=== PATIENT | male | born 1980 | race Caucasian/White ===

== ENCOUNTER → 2020-12-09 11:06 | Outpatient (CLI) | payer OTHER, SELFPAY ==
--- NOTE | 2020-12-09 | DI.MRI.S_ITS ---
PROCEDURE: MR HEAD/BRAIN WO/W CON INDICATIONS: Hemiplegic migraine, intractable, with status migrainosus TECHNIQUE: Noncontrast axial T1 spin echo, axial T2 fast spin echo, sagittal and axial FLAIR, coronal T2 fast spin echo, axial gradient echo, axial diffusion and ADC through the brain. After the administration of contrast, axial and coronal 3D VIBE or T1 spin echo with fat saturation through the brain. COMPARISON: [facility], CT, HEAD AND NECK ANGIO, 05/31/2016, 15:08. [facility], CT, HEAD WITHOUT CONTRAST, 05/31/2016, 12:55. [facility], MR, STROKE PROTOCOL, 05/28/2016, 15:57. [facility], CT, HEAD WITHOUT CONTRAST, 05/28/2016, 15:31. FINDINGS: Image quality: Excellent. CSF Spaces: Basal cisterns are patent. No extra-axial fluid collections. Ventricles are normal in size and shape. Brain: No midline shift. No intracranial bleeds or masses. No abnormal intracranial enhancement. A few small foci of T2 weighted hyperintensity can be seen within the periventricular deep white matter. A few juxtacortical lesions can also be seen. There is involvement of the corpus callosum. The brainstem appears normal. Diffusion-weighted images demonstrate no acute ischemic insults. No chronic ischemic insults. Normal intravascular flow voids are present. Skull and face: Calvarial marrow is normal in signal. Orbits appear normal. Sinuses: Sinuses and mastoids appear clear. IMPRESSION: Small foci of nonenhancing T2 weighted hyperintensity can be seen within the periventricular deep white matter. Differential diagnosis in a patient of this age in with this given history includes sequelae of migraine headaches as well as a demyelinating process, including multiple sclerosis. These foci appear progressed compared to 2016. Dictated by: Ld Pizarro M.D. on 12/09/2020 at 13:10 Approved by: Ld Pizarro M.D. on 12/09/2020 at 13:16
== END ==
PROVIDERS: PCP Physician Assistant Medical; Referring Provider Physician Assistant Medical; Visit Provider Physician Assistant Medical
DX: G43.411 Hemiplegic migraine, intractable, with status migrainosus (principal)
CPT/HCPCS: 70553

== ENCOUNTER → 2021-10-19 15:35 | Outpatient (CLI) | payer OTHER, SELFPAY ==
--- NOTE | 2021-10-19 | DI.MRI.S_ITS ---
PROCEDURE: MR LUMBAR SPINE WO CON INDICATIONS: Radiculopathy, lumbar region TECHNIQUE: Noncontrast sagittal T1 spin echo and T2 fast echo, sagittal STIR, and T2 fast spin echo through the lumbar spine. In cases with scoliosis, additional coronal T2 fast spin echo may be performed. COMPARISON: None. FINDINGS: Image quality: Excellent. Alignment and Curvature: There is normal bony alignment. Bone Marrow: Marrow is of normal overall signal. No acute vertebral body compression fractures. Spinal Cord: Conus medullaris terminates at the L1 level. Visualized cord demonstrates normal signal and size. Paraspinous Soft Tissues: No paravertebral masses. This patient has transitional lumbar anatomy. For the purposes of this examination, the level with the last well-developed disc space is considered to be L5-S1. By this numbering scheme, there are tiny vestigial ribs at T12. The L5 level is transitional and is highly sacralized. T12-L1: Normal appearance. L1-L2: Normal appearance. L2-L3: Normal appearance. L3-L4: The disc height and disk signal are well-preserved. Mild generalized disc bulge is seen. Mild facet joint hypertrophy is seen. Moderate bilateral neural foraminal narrowing is seen. No significant central canal narrowing is seen. L4-L5: The disc height and disk signal are well-preserved. Mild disc bulge is seen, with a central disc protrusion. Moderate facet hypertrophy is seen. There is moderate to severe left-sided and moderate right-sided neural foraminal narrowing. There is a degree compression seen upon the exiting left L4 nerve root. Mild central canal narrowing is seen. L5-S1: A transitional disc is seen at this level. No significant neural foraminal or central canal narrowing can be seen. IMPRESSION: Focal L4-L5 degenerative change is seen. 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 Dictated by: Ld Pizarro M.D. on 10/19/2021 at 15:52 Approved by: Ld Pizarro M.D. on 10/19/2021 at 15:54
== END ==
PROVIDERS: PCP Physician Assistant Medical; Referring Provider Internal Medicine; Visit Provider Internal Medicine
DX: M47.26 Other spondylosis with radiculopathy, lumbar region (principal)
CPT/HCPCS: 72148